=== PATIENT | female | born 1970 | race African-American/Black ===

== ENCOUNTER 2021-10-15 16:40 | Outpatient (CLI) | payer OTHER | END 2021-10-15 19:05 | disposition home or self-care (01) | LOC: RAD 16:40 | PROVIDERS: ATTEND Family Medicine | DX: M54.2 Cervicalgia (principal); M25.519 Pain in unspecified shoulder; R51.9 Headache, unspecified ==

== ENCOUNTER 2021-10-22 08:05 | Outpatient (CLI) | payer OTHER | END 2021-10-22 18:56 | disposition home or self-care (01) | LOC: CT 08:05 | PROVIDERS: ATTEND Family Medicine | DX: R51.9 Headache, unspecified (principal); M25.519 Pain in unspecified shoulder; M54.2 Cervicalgia ==